=== PATIENT | female | born 1960 | race Caucasian/White ===

== ENCOUNTER 2019-12-21 12:09 | Emergency (ER) | payer MEDICAID ==
[2019-12-21] MEDS ORDERED: Benzonatate 100 MG Cap ONE (12:46)
--- NOTE | 2019-12-21 13:04 | EDM.PDOC ---
ED HPI GENERAL MEDICAL PROBLEM - General Chief Complaint: Respiratory Problem Stated Complaint: cough, short of breath Time Seen by Provider: 12/21/19 12:30 Source of Information: Reports: Patient, RN, RN Notes Reviewed History Limitations: Reports: No Limitations - History of Present Illness INITIAL COMMENTS - FREE TEXT/NARRATIVE: Patient with 1-2 days of shortness of breath and cough. She feels she has a bronchitis. 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 She does not feel she has had any sick exposures but her work exposes her to the general population. She states she has an aggrevating cough, no fever and pain in her upper chest dre with deep breaths and with her cough. She has had similar symptoms in the past. She is concerned with the covid virus and her previous experience with similar symptoms caused her to end up with pneumonia for waiting too long. She has tried nothing at this point to make it better. It has worsened since yesterdsy. Onset: Sudden Onset Date: 12/20/19 Onset Time: 15:00 Duration: Day(s): (1), Getting Worse Location: Reports: Chest Quality: Reports: Burning (feeling in her chest dre with deep breath) Severity: Moderate Improves with: Reports: None Worsens with: Reports: None, Other Context: Reports: Activity Associated Symptoms: Reports: Chest Pain, Cough, Shortness of Breath (dre with cough). Denies: Confusion, Fever/Chills, Headaches, Loss of Appetite, Malaise, Syncope, Weakness Middle Chest Pain Score (Numeric/FACES): 3 - Related Data Allergies Allergy/AdvReac Type Severity Reaction Status Date / Time No Known Allergies Allergy Verified 12/21/19 12:46 Home Meds: Home Meds Benzonatate [Tessalon Perle] 100 mg PO TID PRN #30 capsule 12/21/19 [Rx] predniSONE [Prednisone] 20 mg PO DAILY #5 tablet 12/21/19 [Rx] ED ROS GENERAL - Review of Systems Review Of Systems: See Below Constitutional: Denies: Fever, Chills, Malaise, Night Sweats HEENT: Denies: Ear Pain, Sinus Problem Respiratory: Reports: Shortness of Breath, Cough, Sputum. Denies: Wheezing, Hemoptysis Cardiovascular: Reports: Chest Pain (related to cough). Denies: Blood Pressure Problem, Claudication, Dyspnea on Exertion, Lightheadedness Endocrine: Denies: No Symptoms GI/Abdominal: Reports: No Symptoms : Reports: Hematuria Musculoskeletal: Denies: Neck Pain, Arm Pain, Joint Pain, Joint Swelling, Muscle Pain, Muscle Stiffness Skin: Reports: No Symptoms Neurological: Denies: Confusion, Dizziness, Headache, Numbness, Paresthesia Psychiatric: Reports: No Symptoms Hematologic/Lymphatic: Reports: No Symptoms Immunologic: Reports: No Symptoms ED EXAM, GENERAL - Physical Exam Exam: See Below Exam Limited By: No Limitations General Appearance: Alert, WD/WN, No Apparent Distress Ears: Normal External Exam, Normal Canal, Hearing Grossly Normal, Normal TMs Nose: Normal Inspection, Normal Mucosa, No Blood Throat/Mouth: Normal Inspection, Normal Lips, Normal Teeth, Normal Gums, Normal Oropharynx, Normal Voice Head: Atraumatic Neck: Normal Inspection, Supple, Non-Tender, Full Range of Motion. No: Carotid Bruit, Limited Range of Motion, Lymphadenopathy (R) Respiratory/Chest: No Accessory Muscle Use, Chest Non-Tender, Rales (lower right) Cardiovascular: Normal Peripheral Pulses, Regular Rate, Rhythm, No Edema, No Gallop, No JVD GI/Abdominal: Normal Bowel Sounds, Soft, Non-Tender Back Exam: Normal Inspection, Full Range of Motion Extremities: Normal Inspection, Normal Range of Motion, Non-Tender, No Pedal Edema Neurological: Alert, Oriented, CN II-XII Intact, Normal Cognition, Normal Gait, Normal Reflexes Psychiatric: Normal Affect, Normal Mood Skin Exam: Warm, Dry, Intact, Normal Color, No Rash Lymphatic: No Adenopathy Course - Vital Signs Text/Narrative:: Early symptoms (1-2days). Likely viral versus bacterial at this point. Will provide prednisone and Tessalon daniel NO xrays of labs at this time. Patient appears without distress, not using accessory muscles. O2 sat 97% Room air Instructed to return in 6-7 day of not improving for further evaluation, Return sooner if symptoms worsen or becomes short breath not related to her cough Last Recorded V/S: Last Vital Signs Temp 36.8 C 12/21/19 12:28 Pulse 106 H 12/21/19 12:28 Resp 20 12/21/19 12:28 BP 160/98 H 12/21/19 12:28 Pulse Ox Departure - Departure Time of Disposition: 13:00 Disposition: Home, Self-Care 01 Condition: Good Clinical Impression: Viral respiratory infection - Discharge Information *PRESCRIPTION DRUG MONITORING PROGRAM REVIEWED*: No *COPY OF PRESCRIPTION DRUG MONITORING REPORT IN PATIENT ANGLE: No Prescriptions: predniSONE [Prednisone] 20 mg PO DAILY #5 tablet Benzonatate [Tessalon Perle] 100 mg PO TID PRN #30 capsule PRN Reason: Cough Instructions: Prednisone tablets, Benzonatate capsules, Asthma, Adult, Viral Respiratory Infection, [id number] Forms: ED Department Discharge Sepsis Event Note (ED) - Evaluation Sepsis Screening Result: No Definite Risk - Focused Exam Vital Signs: Vital Signs Temp Pulse Resp BP 12/21/19 12:28 36.8 C 106 H 20 160/98 H
== END 2019-12-21 13:00 | disposition home or self-care (01) ==
LOC: LB.ED 12:09
DX: J98.8 Other specified respiratory disorders (principal); B34.9 Viral infection, unspecified; Z79.899 Other long term (current) drug therapy
CPT/HCPCS: 99283; 99284; A9270

== ENCOUNTER 2019-12-27 09:09 | Emergency (ER) | payer MEDICAID, OTHER ==
[2019-12-27] MEDS ORDERED: Sodium Chloride 0.9% 1,000 ML IV SCH (09:45)
[2019-12-27] MEDS ORDERED: Diltiazem 25 MG/5 ML SDV IVPUSH ONE ×2 (09:51→11:10)
[2019-12-27] MEDS ORDERED: LORazepam 2 MG/ML SDV ONE (10:17)
[2019-12-27] MEDS ORDERED: Diltiazem 100 MG in Sodium Chloride 0.9% 100 ML IV SCH (10:30)
[2019-12-27] MEDS ORDERED: methylPREDNISolone Sodium Succinate 125 MG/2 ML SDV IVPUSH ONE (10:35)
[2019-12-27] MEDS ORDERED: methylPREDNISolone Sodium Succinate 125 MG/2 ML SDV ONE (10:42)
[2019-12-27] MEDS ORDERED: Albuterol 0.083% 2.5 MG/3 ML Neb Soln NEB ONE (10:48)
--- NOTE | 2019-12-27 10:59 | CR ---
DATE OF SERVICE: 12/27/2019 CLINICAL DATA: SOB, tachycardic AP chest: No priors. The heart size is at the upper limits of normal. The pulmonary vasculature does appear to be mildly prominent with mild cephalization of flow suggesting mild pulmonary venous congestion. The lungs are clear. No pneumothorax. No pleural effusions. No other significant findings. MTDD
[2019-12-27] MEDS ORDERED: Morphine 4 MG/ML VIAL IVPUSH ONE (11:03)
[2019-12-27] MEDS ORDERED: Morphine 4 MG/ML VIAL ONE (11:10)
[2019-12-27] MEDS ORDERED: Labetalol 100 MG/20 ML MDV IVPUSH ONE (11:52)
[2019-12-27] MEDS ORDERED: Labetalol 100 MG in Sodium Chloride 0.9% 80 ML IV SCH (12:00)
--- NOTE | 2019-12-27 14:59 | EDM.PDOC ---
ED HPI GENERAL MEDICAL PROBLEM - General Chief Complaint: Respiratory Problem Stated Complaint: SOB Time Seen by Provider: 12/27/19 09:20 Source of Information: Reports: Patient History Limitations: Reports: Respiratory Distress - History of Present Illness INITIAL COMMENTS - FREE TEXT/NARRATIVE: Patient comes to ED for evaluation of ongoing respiratory distress. She was in ED 6 days ago with same and was given prednisone and tessalon pearles without relief. She admits to a cough but denies fevers. Her left leg appears edematous though patient states this is her baseline. No formal diagnosis of COPD, but patient continues to smoke. She had an ablation over 10 years ago in [place] for what she states was an "irregular beat". Her SOB has been increasing over the past week. Denies any CP, leg pain, long sedentary periods, clotting disorders, n/v/d. Onset: Other Duration: Day(s): (6), Getting Worse Severity: Moderate Improves with: Reports: None Worsens with: Reports: Movement Associated Symptoms: Reports: No Other Symptoms - Related Data Allergies Allergy/AdvReac Type Severity Reaction Status Date / Time No Known Allergies Allergy Verified 12/21/19 12:46 Home Meds: Home Meds Benazepril [Lotensin] 10 mg PO DAILY 12/27/19 [History] Levothyroxine Sodium [Synthroid] 12/27/19 [History] atorvaSTATin [Lipitor] 40 mg PO BEDTIME 12/27/19 [History] Past Medical History Cardiovascular History: Reports: High Cholesterol, Hypertension Endocrine/Metabolic History: Reports: Hypothyroidism Social & Family History - Tobacco Use Smoking Status *Q: Current Some Day Smoker Years of Tobacco use: 35 Packs/Tins Daily: 0.5 - Caffeine Use Caffeine Use: Reports: Coffee - Recreational Drug Use Recreational Drug Use: No ED ROS GENERAL - Review of Systems Review Of Systems: See Below Constitutional: Reports: No Symptoms HEENT: Reports: No Symptoms Respiratory: Reports: Shortness of Breath, Wheezing, Cough Cardiovascular: Reports: No Symptoms (denies any chest pain or feeling palpitations) Endocrine: Reports: No Symptoms GI/Abdominal: Reports: No Symptoms : Reports: No Symptoms Musculoskeletal: Reports: No Symptoms Skin: Reports: No Symptoms Neurological: Reports: No Symptoms Psychiatric: Reports: Anxiety Hematologic/Lymphatic: Reports: No Symptoms Immunologic: Reports: No Symptoms ED EXAM, GENERAL - Physical Exam Exam: See Below General Appearance: Alert, Anxious, Moderate Distress Ears: Normal External Exam Nose: Normal Inspection. No: Nasal Flaring Throat/Mouth: Normal Lips Head: Atraumatic Neck: Normal Inspection, Full Range of Motion Respiratory/Chest: Decreased Breath Sounds (rales present in bilateral lower lobes with decreased breath sounds throughout), Rales Cardiovascular: No Murmur, Tachycardia, Irregularly Irregular Peripheral Pulses: 3+: Carotid (L), Carotid (R), Radial (L), Radial (R), Posterior Tibial (L), Posterior Tibial (R), Dorsalis Pedis (L), Dorsalis Pedis (R) GI/Abdominal: Normal Bowel Sounds, Soft, Non-Tender Back Exam: Normal Inspection Extremities: Normal Inspection, Non-Tender, Normal Capillary Refill Neurological: Alert, Oriented, No Motor/Sensory Deficits Psychiatric: Normal Mood, Anxious Skin Exam: Warm, Intact EKG INTERPRETATION EKG Date: 12/27/19 Time: 09:24 Rhythm: A-Flutter Rate (Beats/Min): 168 P-Wave: Absent QRS: Normal Comparison: NA - No Prior EKG EKG Interpretation Comments: 2nd ECG 1026 rate 155 aflutter left axis deviation QRS 66 QT'QTc 314/504 3rd ECG 1210 rate 75 atrial flutter qrs 78 Course - Vital Signs Last Recorded V/S: Last Vital Signs Temp 97 F 12/27/19 15:29 Pulse 133 H 12/27/19 15:29 Resp 18 12/27/19 15:29 BP 104/79 12/27/19 15:29 Pulse Ox 96 12/27/19 15:29 - Orders/Labs/Meds Orders: Active Orders 24 hr Category Date Time Status EKG Documentation Completion [RC] ASDIRECTED Care 12/27/19 09:40 Active EKG Documentation Completion [RC] ASDIRECTED Care 12/27/19 11:30 Active EKG Documentation Completion [RC] ASDIRECTED Care 12/27/19 12:22 Active RT Aerosol Therapy [RC] ASDIRECTED Care 12/27/19 10:48 Active CULTURE URINE [RM] Stat Lab 12/27/19 11:09 Received Labetalol [Normodyne] 100 mg Med 12/27/19 12:00 Hold Sodium Chloride 0.9% [Normal Saline] 80 ml IV TITRATE Sodium Chloride 0.9% [Normal Saline] 1,000 ml Med 12/27/19 09:45 Active IV ASDIRECTED EKG 12 Lead [EK] Routine Ther 12/27/19 10:26 Ordered EKG 12 Lead [EK] Routine Ther 12/27/19 12:16 Ordered Medication Orders Sodium Chloride (Normal Saline) 1,000 mls @ 50 mls/hr IV ASDIRECTED CHAO Last Admin: 12/27/19 10:00 Dose: 50 mls/hr Documented by: CHARLENE Labetalol HCl 100 mg/ Sodium (Chloride) 100 mls @ 30 mls/hr IV TITRATE CHAO; Protocol Last Admin: 12/27/19 13:56 Dose: 0.32 mg/min, 19 mls/hr Documented by: CHARLENE Labs: Laboratory Tests 12/27/19 12/27/19 12/27/19 Range/Units 09:38 09:44 09:44 WBC 9.3 (4.0-11.0) K/uL RBC 4.55 (3.80-5.80) M/uL Hgb 14.2 (11.5-16.5) g/dL Hct 44.2 (37.0-47.0) % MCV 97 H (76-96) fL MCH 31.2 (27.0-32.0) pg MCHC 32.1 (31.0-35.0) g/dL RDW 13.8 (11.0-16.0) % Plt Count 223 (150-500) K/uL MPV 11.6 H (6.0-10.0) fL Neut % (Auto) 72.9 H (45.0-70.0) % Lymph % (Auto) 18.5 L (20.0-40.0) % [place] % (Auto) 7.0 (3.0-10.0) % Eos % (Auto) 1.0 (1.0-5.0) % Baso % (Auto) 0.6 H (0.0-0.5) % Neut # (Auto) 6.80 (2.00-7.50) K/uL Lymph # (Auto) 1.73 (1.50-4.00) K/uL [place] # (Auto) 0.65 (0.20-0.80) K/uL Eos # (Auto) 0.09 (0.04-0.40) K/uL Baso # (Auto) 0.06 (0.02-0.10) K/uL D-Dimer, Quantitative (0-400) ng/mL Sodium 142 (136-145) mmol/L Potassium 5.3 H (3.5-5.1) mmol/L Chloride 104 (98-107) mmol/L Carbon Dioxide 29.8 (21.0-32.0) mmol/L Anion Gap 13.5 (5.0-15.0) mmol/L BUN 17 (8-26) mg/dL Creatinine 0.79 (0.55-1.02) mg/dL Est Cr Clr Drug Dosing 72.66 mL/min Estimated GFR (MDRD) > 60 (>60) MLS/MIN BUN/Creatinine Ratio 21.5 (6-25) Glucose 104 H (74-100) mg/dL Calcium 9.2 (8.5-10.1) mg/dL Total Bilirubin 1.1 H (0.0-1.0) mg/dL AST 75 H (15-37) U/L ALT 79 H (12-78) U/L Alkaline Phosphatase 112 (46-116) U/L Troponin I (0.000-0.060) ng/mL B-Natriuretic Peptide (0-125) pg/mL Total Protein 7.1 (6.4-8.2) g/dL Albumin 4.0 (3.4-5.0) g/dL Globulin 3.1 (2.2-4.2) g/dL Albumin/Globulin Ratio 1.3 (0.8-2.0) Urine Color Urine Appearance (CLEAR) Urine pH (5.0-8.0) Ur Specific [place] (1.003-1.030) Urine Protein (NEGATIVE) mg/dL Urine Glucose (UA) (NEGATIVE) mg/dL Urine Ketones (NEGATIVE) mg/dL Urine Occult Blood (NEGATIVE) Urine Nitrite (NEGATIVE) Urine Bilirubin (NEGATIVE) Urine Urobilinogen (0.2-1.0) E.U./dL Ur Leukocyte Esterase (NEGATIVE) Urine RBC /HPF Urine WBC /HPF Ur Squamous Epith Cells /HPF COVID-19 (MUNDO) Negative 12/27/19 12/27/19 12/27/19 Range/Units 09:44 09:44 11:09 WBC (4.0-11.0) K/uL RBC (3.80-5.80) M/uL Hgb (11.5-16.5) g/dL Hct (37.0-47.0) % MCV (76-96) fL MCH (27.0-32.0) pg MCHC (31.0-35.0) g/dL RDW (11.0-16.0) % Plt Count (150-500) K/uL MPV (6.0-10.0) fL Neut % (Auto) (45.0-70.0) % Lymph % (Auto) (20.0-40.0) % [place] % (Auto) (3.0-10.0) % Eos % (Auto) (1.0-5.0) % Baso % (Auto) (0.0-0.5) % Neut # (Auto) (2.00-7.50) K/uL Lymph # (Auto) (1.50-4.00) K/uL [place] # (Auto) (0.20-0.80) K/uL Eos # (Auto) (0.04-0.40) K/uL Baso # (Auto) (0.02-0.10) K/uL D-Dimer, Quantitative 148 (0-400) ng/mL Sodium (136-145) mmol/L Potassium (3.5-5.1) mmol/L Chloride (98-107) mmol/L Carbon Dioxide (21.0-32.0) mmol/L Anion Gap (5.0-15.0) mmol/L BUN (8-26) mg/dL Creatinine (0.55-1.02) mg/dL Est Cr Clr Drug Dosing mL/min Estimated GFR (MDRD) (>60) MLS/MIN BUN/Creatinine Ratio (6-25) Glucose (74-100) mg/dL Calcium (8.5-10.1) mg/dL Total Bilirubin (0.0-1.0) mg/dL AST (15-37) U/L ALT (12-78) U/L Alkaline Phosphatase (46-116) U/L Troponin I < 0.017 (0.000-0.060) ng/mL B-Natriuretic Peptide 1453 H (0-125) pg/mL Total Protein (6.4-8.2) g/dL Albumin (3.4-5.0) g/dL Globulin (2.2-4.2) g/dL Albumin/Globulin Ratio (0.8-2.0) Urine Color Yellow Urine Appearance Clear (CLEAR) Urine pH 6.5 (5.0-8.0) Ur Specific [place] 1.015 (1.003-1.030) Urine Protein Negative (NEGATIVE) mg/dL Urine Glucose (UA) Negative (NEGATIVE) mg/dL Urine Ketones Negative (NEGATIVE) mg/dL Urine Occult Blood Negative (NEGATIVE) Urine Nitrite Negative (NEGATIVE) Urine Bilirubin Negative (NEGATIVE) Urine Urobilinogen 0.2 (0.2-1.0) E.U./dL Ur Leukocyte Esterase Small H (NEGATIVE) Urine RBC Not seen /HPF Urine WBC 0-5 H /HPF Ur Squamous Epith Cells Few /HPF COVID-19 (MUNDO) Meds: Medications Generic Name Dose Route Start Last Admin Trade Name Freq PRN Reason Stop Dose Admin Sodium Chloride 1,000 mls @ 50 mls/hr 12/27/19 09:45 12/27/19 10:00 Normal Saline IV 50 mls/hr ASDIRECTED CHAO Administration Labetalol HCl 100 mg/ Sodium 100 mls @ 30 mls/hr 12/27/19 12:00 12/27/19 13:56 Chloride IV 0.32 mg/min TITRATE CHAO 19 mls/hr Administration Protocol 0.5 MG/MIN Discontinued Medications Generic Name Dose Route Start Last Admin Trade Name Freq PRN Reason Stop Dose Admin Albuterol 2.5 mg 12/27/19 10:48 12/27/19 11:02 Proventil Neb Soln NEB 12/27/19 10:49 2.5 mg ONETIME ONE Administration Diltiazem HCl 20 mg 12/27/19 09:51 12/27/19 09:56 Diltiazem IVPUSH 12/27/19 09:52 20 mg ONETIME ONE Administration Diltiazem HCl 20 mg 12/27/19 11:10 12/27/19 11:15 Diltiazem IVPUSH 12/27/19 11:11 20 mg ONETIME ONE Administration Diltiazem HCl 100 mg/ Sodium 100 mls @ 5 mls/hr 12/27/19 10:30 12/27/19 10:32 Chloride IV 15 mg/hr TITRATE CHAO 15 mls/hr Administration Protocol 5 MG/HR Labetalol HCl 20 mg 12/27/19 11:52 12/27/19 12:06 Normodyne IVPUSH 12/27/19 11:53 20 mg ONETIME ONE Administration Protocol Lorazepam Confirm 12/27/19 10:17 12/27/19 10:37 Ativan Administered 12/27/19 10:18 Not Given Dose 2 mg .ROUTE .STK-MED ONE Methylprednisolone Sodium Succinate Confirm 12/27/19 10:42 12/27/19 10:37 Solu-Medrol Administered 12/27/19 10:43 Not Given Dose 125 mg .ROUTE .STK-MED ONE Methylprednisolone Sodium Succinate 125 mg 12/27/19 10:35 12/27/19 10:38 Solu-Medrol IVPUSH 12/27/19 10:36 125 mg ONETIME ONE Administration Morphine Sulfate 4 mg 12/27/19 11:03 12/27/19 11:04 Morphine IVPUSH 12/27/19 11:04 4 mg ONETIME ONE Administration Morphine Sulfate Confirm 12/27/19 11:10 12/27/19 11:16 Morphine Administered 12/27/19 11:11 Not Given Dose 4 mg .ROUTE .STK-MED ONE - Re-Assessments/Exams Free Text/Narrative Re-Assessment/Exam: 12/27/19 16:03 Patient leaving department with Air care. Free Text/Narrative Re-Assessment/Exam: 12/27/19 0920 telehealth caled for consult. will try diltiazem bolus for rate control. Free Text/Narrative Re-Assessment/Exam: 12/27/19 1030 patient increased SOB, very anxious, does not want bipap or intubation. Velma HARDEN called for assistance. Duoneb started, COVID 19 still pending. Departure - Departure Time of Disposition: 15:49 Disposition: DC/Tfer to Acute Hospital 02 Condition: Good Clinical Impression: Congestive heart failure Qualifiers: Heart failure type: unspecified Heart failure chronicity: unspecified Qualified Code(s): I50.9 - Heart failure, unspecified - Discharge Information *PRESCRIPTION DRUG MONITORING PROGRAM REVIEWED*: No *COPY OF PRESCRIPTION DRUG MONITORING REPORT IN PATIENT ANGLE: No Instructions: Steps to Quit Smoking, [id number], Shortness of Breath, Adult, [id number], Heart Failure, Self Care Referrals: PCP,None [Primary Care Provider] - Forms: ED Department Discharge, Interfacility Transfer [facility] Additional Instructions: Patient to transport via helicopter to [place] for further cardiac assessment ETA [id number]. Patient is agreeable to the plan and is stable for transport. She will remain on the labetalolol drip. Sepsis Event Note (ED) - Evaluation Sepsis Screening Result: No Definite Risk - Focused Exam Vital Signs: Vital Signs Temp Pulse Resp BP Pulse Ox 12/27/19 15:29 97 F 133 H 18 104/79 96 12/27/19 14:57 135 H 16 106/77 96 12/27/19 14:07 141 H 111/84 12/27/19 13:37 96 16 122/73 96 12/27/19 12:42 73 16 101/69 12/27/19 12:08 100 16 122/98 H 12/27/19 11:45 156 H 13 130/93 H 93 L 12/27/19 11:28 156 H 16 138/97 H 93 L 12/27/19 10:32 148/88 H 12/27/19 09:16 97.8 F 157 H 14 140/60 96 - My Orders Last 24 Hours: My Active Orders 12/27/19 09:40 EKG Documentation Completion [RC] ASDIRECTED 12/27/19 09:45 Sodium Chloride 0.9% [Normal Saline] 1,000 ml IV ASDIRECTED 12/27/19 10:26 EKG 12 Lead [EK] Routine 12/27/19 10:48 RT Aerosol Therapy [RC] ASDIRECTED 12/27/19 11:09 CULTURE URINE [RM] Stat 12/27/19 11:30 EKG Documentation Completion [RC] ASDIRECTED 12/27/19 12:00 Labetalol [Normodyne] 100 mg Sodium Chloride 0.9% [Normal Saline] 80 ml IV TITRATE 12/27/19 12:16 EKG 12 Lead [EK] Routine 12/27/19 12:22 EKG Documentation Completion [RC] ASDIRECTED - Assessment/Plan Last 24 Hours: My Active Orders 12/27/19 09:40 EKG Documentation Completion [RC] ASDIRECTED 12/27/19 09:45 Sodium Chloride 0.9% [Normal Saline] 1,000 ml IV ASDIRECTED 12/27/19 10:26 EKG 12 Lead [EK] Routine 12/27/19 10:48 RT Aerosol Therapy [RC] ASDIRECTED 12/27/19 11:09 CULTURE URINE [RM] Stat 12/27/19 11:30 EKG Documentation Completion [RC] ASDIRECTED 12/27/19 12:00 Labetalol [Normodyne] 100 mg Sodium Chloride 0.9% [Normal Saline] 80 ml IV TITRATE 12/27/19 12:16 EKG 12 Lead [EK] Routine 12/27/19 12:22 EKG Documentation Completion [RC] ASDIRECTED
== END 2019-12-27 16:27 ==
LOC: LB.ED 09:09
DX: I11.0 Hypertensive heart disease with heart failure (principal); I50.9 Heart failure, unspecified; E78.00 Pure hypercholesterolemia, unspecified; E03.9 Hypothyroidism, unspecified; F17.210 Nicotine dependence, cigarettes, uncomplicated; I48.92 Unspecified atrial flutter; Z20.828 Contact with and (suspected) exposure to other viral communicable diseases; Z79.899 Other long term (current) drug therapy
CPT/HCPCS: 36415; 71045; 80053; 81001; 83880; 84484; 85025; 85379; 87086; 87635; 93005; 96365; 96366; 96368; 96375; 96376; 99285; J2270; J2930; J3490; J7030; J7050; U0002